=== PATIENT | male | born 1935 | race Caucasian/White ===

== ENCOUNTER 2018-01-22 23:34 | Emergency (ER) | payer MEDICARE, OTHER ==
[~2018-01-22] VITALS: Ht 172.7 cm; Wt 71.0 kg
--- NOTE | 2018-01-23 00:07 | NUR ---
BREATHING TREATMENT GIVEN USING A FACE MASK. BREATHING TECH. FOR GOOD DEPOSITION TO THE LUNGS.
[2018-01-23] MEDS ORDERED: METFORMIN500 M2 PO (00:11)
[2018-01-23] MEDS ORDERED: ZOCOR20 M1 PO (00:12)
[2018-01-23] MEDS ORDERED: LISINOPRIL/HYDR1 TA1 PO (00:15)
[2018-01-23] MEDS ORDERED: METOPROL TAR25 M1 PO (00:16)
[2018-01-23] MEDS ORDERED: CLOPIDOGREL75 MG PO (00:16)
[2018-01-23] MEDS ORDERED: VENTOLIN HFA IN (01:14)
[2018-01-23 01:35] LABS: HEMATOCRIT 39.2 % (39.0-50.0); IMMATURE GRANULOCYTES 0.3 % (0.0-5.0); MEAN CELL VOLUME 97.3 fL CALC (80.0-100.0); MEAN CORPUSCULAR HGB 32.3 pG CALC (26.0-32.0); MEAN CORPUSCULAR HGB CONC 33.2 g/L CALC (32.0-36.0); NEUT# 7.66 thou/uL (1.82-7.42); RED BLOOD COUNT 4.03 mill/uL (4.70-6.10); RED CELL DISTRI WIDTH 12.5 % (11.5-15.5)
[2018-01-23 02:00] VITALS: BP 117/56
== END 2018-01-23 02:08 | disposition home or self-care (01) ==
LOC: ED 23:34
PROVIDERS: Family Medicine
DX: J44.1 Chronic obstructive pulmonary disease with (acute) exacerbation (principal); I10 Essential (primary) hypertension